=== PATIENT | female | born 1960 | race African-American/Black ===

== ENCOUNTER 2019-05-07 16:59 | Emergency (ER) | payer OTHER ==
[~2019-05-07] VITALS: Ht 175.3 cm; Wt 99.8 kg
[~2019-05-07 16:59] MED LIST: CLEOCIN HCL150 MG PO; FLEXERIL; NORCO 5-325 TA1 EACH PO; PHENERGAN 25 MG25 M1 PO; VICODIN 5-5001 EACH PO
[2019-05-07] MEDS ORDERED: IBU800 MG PO (17:19)
[2019-05-07 17:59] LABS: HEMATOCRIT 39.1 % (37.0-47.0); HEMOGLOBIN 12.5 gm/dL (12.0-15.0); MCH 27.8 pg (26.0-34.0); MCHC 31.9 g/dL (28.0-37.0); WBC 4.4 thou/uL (4.0-11.0)
[2019-05-07 18:01] LABS: ABSOLUTE NEUTROPHILS 2.1 thou/uL (1.4-8.2); BASOPHILS 0.6 % (0.0-2.0); EOSINOPHILS 1.1 % (0.0-3.0); LYMPHOCYTES 41.8 % (24.0-44.0); MCV 87.2 fL (80.0-100.0); PLATELET COUNT 226 thou/uL (150-400); POLYS 46.5 % (36.0-66.0); RBC 4.48 mil/uL (4.20-5.00); RDW 14.4 % (10.5-14.5)
[2019-05-07 18:06] LABS: URINE BILIRUBIN NEGATIVE (Negative); URINE BLOOD TRACE (Negative); URINE CLARITY CLEAR; URINE COLOR YELLOW; URINE GLUCOSE-RANDOM* NEGATIVE (Negative); URINE KETONES NEGATIVE (Negative); URINE LEUKOCYTES-REFLEX NEGATIVE (Negative); URINE NITRITE-REFLEX NEGATIVE (Negative); URINE PROTEIN (DIPSTICK) NEGATIVE (Negative); URINE UROBILINOGEN 0.2 E.U./dl (0.2-1.0)
[2019-05-07 18:08] LABS: ANION GAP 6 mmol/L (7-16); BUN 11 mg/dL (7-18); CALCIUM 9.6 mg/dL (8.5-10.1); CHLORIDE 105 mmol/L (98-107); CO2 30 mmol/L (21-32); CREATININE 0.9 mg/dL (0.6-1.0); GLUCOSE 88 mg/dL (74-106); SODIUM 141 mmol/L (136-145)
[2019-05-07 18:17] LABS: ALBUMIN 3.5 g/dL (3.4-5.0); SGOT 15 U/L (15-37); SGPT 18 U/L (30-65); TOTAL BILIRUBIN 0.6 mg/dL (<0.1-1.0); TOTAL PROTEIN 7.5 g/dL (6.4-8.2); TROPONIN-I <0.06 ng/mL (<0.06)
[2019-05-07] MEDS ORDERED: NORCO 5-325 TA1 EAC1 PO (20:05)
[2019-05-07 20:43] VITALS: BP 119/71
== END 2019-05-07 20:30 | disposition home or self-care (01) ==
LOC: ER 16:59
PROVIDERS: Physician Assistant
DX: M54.5 Low back pain (principal); E03.9 Hypothyroidism, unspecified; Z88.6 Allergy status to analgesic agent